=== PATIENT | female | born 1945 | race Caucasian/White ===

== ENCOUNTER 2017-09-12 19:48 | Inpatient (IN) ==
--- NOTE | 2017-09-12 20:15 | Emergency Department Note ---
Disposition Clinical Impression: Small bowel obstruction Renal failure (ARF), acute on chronic Qualifiers: Acute renal failure type: unspecified Chronic kidney disease stage: unspecified stage Qualified Code(s): N17.9 - Acute kidney failure, unspecified; N18.9 - Chronic kidney disease, unspecified; N18.9 - Chronic kidney disease, unspecified Disposition: Admitted As Inpatient Condition: Fair Forms: Work/School Release, ED Satisfaction Letter Time of Disposition: 20:39 Abdominal Pain HPI - General Chief Complaint: ED Nausea/Vomiting/Diarrhea Stated Complaint: small bowel obstruction Time Seen by Provider: 09/12/17 20:01 Source: patient, EMS Nursing Notes Reviewed: Yes Vital Signs Reviewed: Yes - History of Present Illness HPI Narrative: Patient with a history of breast cancer and uterine cancer with recurrences and she has a history of multiple abdominal surgeries and presents from the [facility] where a CAT scan shows a high-grade small bowel obstruction. The patient states her pain started this morning at 8:00 and was lower abdominal pain and sharp and intermittent and at this point the pain has resolved. She did have associated vomiting earlier but no diarrhea. No fever, blood in the urine, blood in the stool. Does not have a history of bowel obstruction that she is aware of. Social history: No smoking or alcohol. Is here with a friend Pain Scale: 0 - Related Data Home Medications Medication Instructions Recorded Confirmed Calcium Carbonate [Calcium] 500 mg PO BID 08/07/17 09/05/17 Cholecalciferol (Vitamin D3) 1,000 unit PO DAILY 08/07/17 09/05/17 [Vitamin D] Krill/Om-3/Dha/Epa/Phospho/Ast 1 each PO DAILY 08/07/17 09/05/17 [Krill Oil 1,000 mg Softgel] Levothyroxine [Synthroid] 125 mcg PO DAILY 08/07/17 09/05/17 Previous Rx's Medication Instructions Recorded Raloxifene [Evista] 60 mg PO DAILY #90 tablet 08/07/17 Allergies Allergy/AdvReac Type Severity Reaction Status Date / Time No Known Allergies Allergy Verified 09/05/17 13:00 Review of Systems: Constitutional: No fever Vision: No blurred vision ENT: No rhinorrhea Respiratory: No cough Allergic: No allergies : No blood in urine GI: No blood in stool Hematologic: No bruising Dermatologic: No skin rash Musculoskeletal: No pain in the extremities Neuro: No numbness of the extremities Abdominal Pain PMH - Past Medical History Medical history: Reports: cancer, diabetes, osteoporosis, thyroid disease Female Surgical History: Reports: cancer surgery Psychiatric history: Reports: no psych history - Social History Smoking status: Never smoker Alcohol use: Reports: none Drug use: Reports: none Physical Exam CONSTITUTIONAL: Alert and oriented X3, well-nourished, well appearing, in no apparent distress HEAD: Normocephalic; atraumatic. EYES: PERRL, no scleral icterus. NOSE: The nose is normal in appearance without rhinorrhea RESP: Normal chest excursion with respiration; breath sounds clear and equal bilaterally; no wheezes, rhonchi, or rales CARD: Regular rhythm, without murmurs, rub or gallop ABD: Non-distended; well-healed surgical scars, ureterostomy with yellow urine, mild discomfort with palpation mid and lower abdomen and no abdominal discomfort upper abdomen. The entire abdomen is soft,without rigidity, rebound or guarding SKIN: Normal for age and race; warm and dry; no apparent lesions - General Limitations: no limitations General appearance: alert, in no apparent distress Course Vital Signs Temperature 98.4 F 09/12/17 19:52 Pulse Rate 80 09/12/17 19:52 Respiratory Rate 18 09/12/17 19:52 Blood Pressure 107/88 09/12/17 19:52 O2 Sat by Pulse Oximetry 98 09/12/17 19:52 Temperature 98.4 F 09/12/17 19:52 Pulse Rate 80 09/12/17 19:52 Respiratory Rate 18 09/12/17 19:52 Blood Pressure 107/88 09/12/17 19:52 O2 Sat by Pulse Oximetry 98 09/12/17 19:52 Oxygen Delivery Oxygen Delivery Room Air Abdominal Pain - MDM Narrative Medical decision making narrative: I did review the labs from the [facility] and these will not be repeated as well as the CT from the [facility]. She is not vomiting has no subjective pain so a NG tube will not be placed at this time. I did speak with the hospitalist accepts the patient for admission. I did speak with Dr. Sebastian from surgery who accepts the patient in consultation and I will consult Dr. Ferris. The patient will be admitted. [id number]
--- NOTE | 2017-09-12 22:02 | Internal Med History&Physical ---
Date of Encounter: 09/12/17 Time of Encounter: 21:58 Assessment and Plan (1) Small bowel obstruction Current visit: Yes Status: Acute patient has multiple abdominal surgery, small bowel obstruction, Dr. willingham was contacted by ED physician we will consult surgery. Nothing by mouth, IV fluids (2) History of breast cancer Current visit: No Status: Acute Status post surgery, continue tamoxifen (3) History of uterine cancer Current visit: No Status: Acute State of surgery and the bladder removed right kidney resection stated post urostomy (4) Renal failure (ARF), acute on chronic Current visit: Yes Status: Acute Dehydration from diarrhea nausea vomiting continue IV fluids Qualifiers: Acute renal failure type: unspecified Chronic kidney disease stage: stage 2 (mild) Qualified Code(s): N17.9 - Acute kidney failure, unspecified; N18.2 - Chronic kidney disease, stage 2 (mild); N18.2 - Chronic kidney disease, stage 2 (mild) Internal Medicine - H&P: HPI Chief complaint: abdominal pain Admitted From: Home Plans for Post Hospital Care: Home History of present illness: Ms. Bacon is a 71 year old female who has history of breast cancer uterus cancer status post hysterectomy and right-sided kidney removal, hypothyroidism present to the emergency room for acute onset abdominal pain. Patient stated she was alright last night, this morning she woke up after breakfast developed abdominal pain, pain is diffuse, cramping 8 out of 10 constant and lasted for few hours then developed nausea vomiting with bile emesis. She called her friends sent her [place] [facility] abdominal shows high great small bowel obstruction. Patient is feeling better now, nausea vomiting resolved abdominal is soft, pain level down to 4 out of 10. She had a bowel movement this morning. Patient is going to be admitted for small bowel obstruction surgery was contacted by ED physician Past Med Surg Social Fam HX - Past Medical History Medical history: cancer, diabetes, osteoporosis, thyroid disease Psychiatric history: no psych history - Past Surgical History Surgical History: breast surgery, ANNETTE/BSO - Social History Smoking Status: Never smoker Smokeless Tobacco Status: No Alcohol use: none Drug use: none Internal Medicine - H&P: Meds Cholecalciferol (Vitamin D3) [Vitamin D] 2,000 unit PO DAILY 08/07/17 [History] Krill/Om-3/Dha/Epa/Phospho/Ast [Krill Oil 1,000 mg Softgel] 1 each PO DAILY 01/15 [History] Levothyroxine [Synthroid] 125 mcg PO QAM 08/07/17 [History] Acetaminophen [Tylenol] 650 mg PO HS 09/12/17 [History] Aspirin Enteric Coated [Aspirin EC] 81 mg PO DAILY 09/12/17 [History] Calcium Carbonate/Vitamin D3 [Calcium 600-Vit D3 400 Tablet] 1 each PO BID 09/12 [History] Melatonin [Melatin] 9 mg PO HS 09/12/17 [History] Multivitamin [One Daily Multivitamin] 1 each PO DAILY 09/12/17 [History] Sodium Bicarbonate 650 mg PO DAILY 09/12/17 [History] Tamoxifen Citrate 20 mg PO DAILY 09/12/17 [History] Valerian Root 250 mg PO HS PRN 09/12/17 [History] 3 Allergy/AdvReac Type Severity Reaction Status Date / Time No Known Allergies Allergy Verified 09/05/17 13:00 All Systems PM: ALL-system review of systems was performed and is negative for pertinent findings except as documented above in the HPI. - Constitutional Vitals: Temp Pulse Resp BP Pulse Ox 98.4 F 85 18 118/62 94 09/12/17 19:52 09/12/17 21:16 09/12/17 21:16 09/12/17 21:16 09/12/17 21:16 General appearance: Present: A&O X 3, obese Exam: CONSTITUTIONAL: Patient appears as an age appropriate female well developed, in no acute distress. EYES Clear sclerae, bilateral pupils are equal, reactive to light and accommodation. Extraocular movements are intact RESPIRATORY: No accessory muscle use, bilateral clear to auscultation, no wheezing, no crackles/rales. CARDIOVASCULAR: Regular heart rate, normal S1 and S2, no murmurs GASTROINTESTINAL: bowel sounds present, soft, no tenderness. No hepatosplenomegaly. No bilateral CVA tenderness MUSCULOSKELETAL: Joints in normal range of motion, no clubbing, no edema, no cyanosis. Bilateral peripheral pulses 2+ LYMPHATIC no lymphadenopathy in neck, groin and axilla bilaterally, no thyromegaly. NEUROLOGIC: CN II to XII are grossly intact, no focal neurological deficit. Deep tendon reflexes 2+ bilaterally. Normal light touch sensation to upper and lower extremity PSYCHIATRIC: Oriented x3, with good insight, mood is euthymic. No hallucinations or delusions. SKIN: Skin warm and dry, no rashes, no open wound.
[2017-09-12] MEDS ORDERED: Naloxone 0.4 MG/ML INJ IVP PRN (22:08)
[2017-09-12] MEDS ORDERED: Ondansetron 4 MG/2 ML VIAL IVP PRN (22:11)
--- NOTE | 2017-09-12 23:05 | General Surgery Consult Note ---
Date of Encounter: 09/12/17 Time of Encounter: 22:54 Assessment and Plan (1) Small bowel obstruction Current Visit: Yes Status: Acute 71F with sbo likely due to adhesions; still unresolved at present; non peritoneal; unable to load films at present; NPO IVF NG tube if she vomits again; daily labs: replete lytes judicious use of narcotics strict I/Os, vitals checks consider UGI with SBFT if SBO is prolonged OR if patient gets an NG tube; will cont to follow History of Present Illness Consult date: 09/12/17 Reason for consult: abdominal pain History of present illness: 71F with complex medical history including stage III L sided breast CA s/p bilateral mastectomy (R was prophylactic) and adjuvant therapy (chemo and radiation), 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 The patient had a bowel movement this morning, but states that she has not been able to have a bowel movement nor pass flatus since this morning. She was evaluated at the [facility] where a CT scan was obtained demonstrating small bowel obstruction that was described as high grade. She was subsequently transferred here for further evaluation. At present she is still not having bowel function, but reports no abdominal distension nor pain. No fevers, chills, nausea or vomiting, but she is burping a lot. Past Med Surg Social Fam HX - Past Medical History Medical history: cancer, diabetes, osteoporosis, thyroid disease Psychiatric history: no psych history - Past Surgical History Surgical History: breast surgery, ANNETTE/BSO - Social History Smoking Status: Never smoker Smokeless Tobacco Status: No Alcohol use: none Drug use: none - Family History Father Living Status: Age at : 75 Cause of : Cancer Hx Family Cancer: Yes (Bladder) Mother Living Status: Age at : 36 Cause of : Cancer Hx Family Cancer: Yes (Breast) Medications and Allergies Cholecalciferol (Vitamin D3) [Vitamin D] 2,000 unit PO DAILY 08/07/17 [History] Krill/Om-3/Dha/Epa/Phospho/Ast [Krill Oil 1,000 mg Softgel] 1 each PO DAILY 01/15 [History] Levothyroxine [Synthroid] 125 mcg PO QAM 08/07/17 [History] Acetaminophen [Tylenol] 650 mg PO HS 09/12/17 [History] Aspirin Enteric Coated [Aspirin EC] 81 mg PO DAILY 09/12/17 [History] Calcium Carbonate/Vitamin D3 [Calcium 600-Vit D3 400 Tablet] 1 each PO BID 09/12 [History] Melatonin [Melatin] 9 mg PO HS 09/12/17 [History] Multivitamin [One Daily Multivitamin] 1 each PO DAILY 09/12/17 [History] Sodium Bicarbonate 650 mg PO DAILY 09/12/17 [History] Tamoxifen Citrate 20 mg PO DAILY 09/12/17 [History] Valerian Root 250 mg PO HS PRN 09/12/17 [History] 3 Allergy/AdvReac Type Severity Reaction Status Date / Time No Known Allergies Allergy Verified 09/05/17 13:00 Review of Systems All systems PM: The remainder of the systems were reviewed and are negative General Surgery Exam Initial Vital Signs Temp Pulse Resp BP Pulse Ox 98.4 F 80 18 107/88 98 09/12/17 19:52 09/12/17 19:52 09/12/17 19:52 09/12/17 19:52 09/12/17 19:52 - General physical appearance well developed, well nourished, no distress - Eyes normal ocular movement - ENT normocephalic - Neck trachea midline, no lymphadectomy - Respiratory normal expansion, normal respiratory effort - Cardiovascular Cardiovascular exam: Present: RRR - Abdomen Abdomen general surgery: Present: soft, non tender (non distended; urostomy - pink viable functioning), surgical scars - Integumentary Integumentary general surgery: Present: warm and dry - Neurologic Present: CN 2-12 grossly intact - Psychiatric Psychiatric general surgery: Present: A&Ox3 Exam Initial Vital Signs Temp Pulse Resp BP Pulse Ox 98.4 F 80 18 107/88 98 09/12/17 19:52 09/12/17 19:52 09/12/17 19:52 09/12/17 19:52 09/12/17 19:52 Results - Labs All other labs normal. Consult Discharge Plan - Plan [facility]errals: [facility] [Primary Care Provider] -
[2017-09-13] MEDS: D5% in 0.45% NACL 1,000 ML IVC SCH ×2 (01:14→16:13)
[2017-09-13] MEDS: *HR* Heparin 5,000 UNIT/ML VIAL SQ SCH ×4 (01:14→23:33)
[2017-09-13 06:22] LABS: Calcium 8.4 mg/dL (8.6-10.3); Magnesium 2.1 mg/dL (1.6-2.6); Phosphorous 5.5 mg/dL (2.7-4.5); Potassium 4.8 mEq/L (3.5-5.1)
[2017-09-13 06:24] LABS: Basophils % 0.5 %; Eosinophils # 0.1 K/mcL (0.0-0.6); Eosinophils % 1.5 %; Hematocrit 29.6 % (35.3-44.9); Hemoglobin 9.5 g/dL (11.5-15.4); Immature Granulocytes % 0.2 % (0-4); Lymphocytes # 2.6 K/mcL (0.6-4.6); Lymphocytes % 38.9 %; Mean Corpuscular HGB Conc 32.1 g/dL (31.6-35.5); Mean Corpuscular Volume 90.2 fL (83.0-100.0); Mean Platelet Volume 10.1 fL (9.4-12.4); Monocytes # 0.6 K/mcL (0.0-1.3); Monocytes % 9.2 %; Neutrophils # 3.3 K/mcL (1.6-8.9); Platelet Count 176 K/mcL (140-400); Red Blood Count 3.28 M/mcL (3.82-4.97); Red Cell Distribution Width 12.6 % (11.5-14.5); Segmented Neutrophils % 49.7 %
[2017-09-13] MEDS: Aspirin Enteric Coated 81 MG Tablet PO SCH (09:15)
[2017-09-13] MEDS: Cholecalciferol (D-3) 1,000 UNIT TABLET PO SCH (09:16)
--- NOTE | 2017-09-13 11:23 | General Surgery Progress Note ---
<Harding,Nenita Emilee - Last Filed: 09/13/17 11:21> Date of Encounter: 09/13/17 Time of Encounter: 11:20 - Assessment and Plan (1) Small bowel obstruction Current Visit: Yes Status: Acute Continue bowel rest Npo except ice chips and medications UGI with SBFT today- gastrograffin Supportive care Strict I&Os Serial abdominal exams Will continue to follow and assess progress Subjective Patient reports: no new complaints, feels better, flatus, no bowel movement, afebrile, other (complaint of belching) Objective Vital Signs - Last 8 Hours Temp Pulse Resp BP Pulse Ox 09/13/17 07:47 98.4 F 57 18 92/53 99 09/13/17 04:17 97.7 F 70 15 96/53 96 Intake and Output 09/12/17 09/13/17 09/13/17 23:59 07:59 15:59 Intake Total 0 / 0 Output Total 0 / 0 Balance 0 / 0 Intake: Oral 0 / 0 Output: Urine 0 / 0 Urostomy 0 / 0 Other: Weight 77.56 kg Blood Glucose* 123 Patient Weight 09/13/17 23:59 Weight 77.56 kg - General physical appearance well developed, well nourished, no distress, no pain - Eyes normal ocular movement - ENT normal mucosa, atraumatic, normocephalic - Neck Neck exam: trachea midline - Respiratory normal expansion, normal respiratory effort, clear to auscultation - Cardiovascular Cardiovascular exam: Present: RRR - Abdomen Abdomen: Present: bowel sounds present, soft, non tender - Neurologic CN 2-12 grossly intact - Musculoskeletal normal gait, normal posture - Psychiatric oriented to time, oriented to person, oriented to place, speech is normal, memory intact - Labs 09/13/17 05:08 09/13/17 05:08 Diabetes panel 09/13/17 Range/Units 05:08 Sodium 142 (136-145) mEq/L Potassium 4.8 (3.5-5.1) mEq/L Chloride 108 H (98-107) mEq/L Carbon Dioxide 25 (23-29) mEq/L BUN 46 H (8-23) mg/dL Creatinine 2.09 H (0.60-1.20) mg/dL Glucose 128 H (70-105) mg/dL Calcium 8.4 L (8.6-10.3) mg/dL Calcium panel 09/13/17 Range/Units 05:08 Calcium 8.4 L (8.6-10.3) mg/dL Phosphorus 5.5 H (2.7-4.5) mg/dL Pituitary panel 09/13/17 Range/Units 05:08 Sodium 142 (136-145) mEq/L Potassium 4.8 (3.5-5.1) mEq/L Chloride 108 H (98-107) mEq/L Carbon Dioxide 25 (23-29) mEq/L BUN 46 H (8-23) mg/dL Creatinine 2.09 H (0.60-1.20) mg/dL Glucose 128 H (70-105) mg/dL Calcium 8.4 L (8.6-10.3) mg/dL Adrenal panel 09/13/17 Range/Units 05:08 Sodium 142 (136-145) mEq/L Potassium 4.8 (3.5-5.1) mEq/L Chloride 108 H (98-107) mEq/L Carbon Dioxide 25 (23-29) mEq/L BUN 46 H (8-23) mg/dL Creatinine 2.09 H (0.60-1.20) mg/dL Glucose 128 H (70-105) mg/dL Calcium 8.4 L (8.6-10.3) mg/dL Consult Discharge Plan - Plan Referrals: [facility] [Primary Care Provider] - - Attending Attestation For this encounter, I have reviewed the WAITSTAFF or PA documentation, treatment plan, and medical decision making; and I have had face to face time with this patient. <Conrado Ferris - Last Filed: 09/13/17 20:49> Date of Encounter: 09/13/17 - Assessment and Plan (1) Small bowel obstruction Current Visit: Yes Status: Acute Objective Vital Signs - Last 8 Hours Temp Pulse Resp BP Pulse Ox 09/13/17 18:25 98.3 F 63 15 102/63 97 09/13/17 14:42 97.7 F 76 18 116/60 99 Intake and Output 09/13/17 09/13/17 09/13/17 07:59 15:59 23:59 Intake Total 0 / 0 1000 / 1000 0 / 0 Output Total 0 / 0 0 / 0 0 / 0 Balance 0 / 0 1000 / 1000 0 / 0 Intake: IV Fluids 1000 / 1000 D5% And 0.45% Nacl 1000 Ml Bag 1000 / 1000 1,000 ML @ 100 mls/hr IVC .Q10H [facility] Rx#:[id number] Oral 0 / 0 0 / 0 0 / 0 Output: Urine 0 / 0 0 / 0 0 / 0 Urostomy 0 / 0 Other: Meal npo Weight 77.56 kg Blood Glucose* 123 122 Patient Weight 09/13/17 23:59 Weight 77.56 kg - Labs 09/13/17 05:08 09/13/17 05:08 Diabetes panel 09/13/17 Range/Units 05:08 Sodium 142 (136-145) mEq/L Potassium 4.8 (3.5-5.1) mEq/L Chloride 108 H (98-107) mEq/L Carbon Dioxide 25 (23-29) mEq/L BUN 46 H (8-23) mg/dL Creatinine 2.09 H (0.60-1.20) mg/dL Glucose 128 H (70-105) mg/dL Calcium 8.4 L (8.6-10.3) mg/dL Calcium panel 09/13/17 Range/Units 05:08 Calcium 8.4 L (8.6-10.3) mg/dL Phosphorus 5.5 H (2.7-4.5) mg/dL Pituitary panel 09/13/17 Range/Units 05:08 Sodium 142 (136-145) mEq/L Potassium 4.8 (3.5-5.1) mEq/L Chloride 108 H (98-107) mEq/L Carbon Dioxide 25 (23-29) mEq/L BUN 46 H (8-23) mg/dL Creatinine 2.09 H (0.60-1.20) mg/dL Glucose 128 H (70-105) mg/dL Calcium 8.4 L (8.6-10.3) mg/dL Adrenal panel 09/13/17 Range/Units 05:08 Sodium 142 (136-145) mEq/L Potassium 4.8 (3.5-5.1) mEq/L Chloride 108 H (98-107) mEq/L Carbon Dioxide 25 (23-29) mEq/L BUN 46 H (8-23) mg/dL Creatinine 2.09 H (0.60-1.20) mg/dL Glucose 128 H (70-105) mg/dL Calcium 8.4 L (8.6-10.3) mg/dL - Attending Attestation I have personally seen and examined the patient. I have reviewed pertinent labs , imaging, progress notes, including this one. I agree with the above assessment and plan and wish to include the following... 71F admitted with concern for sbo; UGI proved no SBO; abdom is soft, non tender , non distended; no acute surgery; general surgery will sign off. please call with questions or new concerns.
[2017-09-13] MEDS ORDERED: *HR* Dextrose 50 % in Water (Syg) 50 ML SYRINGE IVP PRN (14:30)
[2017-09-13] MEDS ORDERED: Dextrose Gel 15 GM/37.5 ML TUBE PO PRN ×2 (14:30)
[2017-09-13] MEDS ORDERED: D5% in Water 1,000 ML IVC PRN (14:30)
--- NOTE | 2017-09-13 17:05 | Internal Med Progress Note ---
Date of Encounter: 09/13/17 Time of Encounter: 11:00 - Assessment and plan (1) Abdominal pain Current Visit: Yes Status: Acute Assessment and plan: -Gen. surgery following with recommendations for small bowel follow-through which showed no evidence of high-grade small bowel obstruction -Patient currently bowel rest except ice chips and medications -Appreciate any further recommendations Qualifiers: Abdominal location: generalized Qualified Code(s): R10.84 - Generalized abdominal pain (2) Renal failure (ARF), acute on chronic Current Visit: Yes Status: Acute Assessment and plan: Creatinine 2.09 today; baseline unclear We will continue to monitor Qualifiers: Acute renal failure type: unspecified Chronic kidney disease stage: stage 2 (mild) Qualified Code(s): N17.9 - Acute kidney failure, unspecified; N18.2 - Chronic kidney disease, stage 2 (mild); N18.2 - Chronic kidney disease, stage 2 (mild) (3) History of bladder cancer Current Visit: No Status: Acute Assessment and plan: Status post surgery, continue tamoxifen (4) History of breast cancer Current Visit: No Status: Acute Assessment and plan: Status post surgery, continue tamoxifen (5) History of uterine cancer Current Visit: No Status: Acute Assessment and plan: State of surgery and the bladder removed right kidney resection stated post urostomy (6) DVT prophylaxis Current Visit: Yes Status: Acute Assessment and plan: Subcutaneous heparin - Subjective Interval history: Patient with abdominal pain with concerns for small bowel obstruction Upper GI and small bowel follow-through ordered per surgery - Constitutional Vitals: Temp Pulse Resp BP Pulse Ox 97.7 F 76 18 116/60 99 09/13/17 14:42 09/13/17 14:42 09/13/17 14:42 09/13/17 14:42 09/13/17 14:42 General appearance: Present: A&O X 3, obese - Respiratory Respiratory exam: Present: CTAB. Absent: accessory muscle use, rales, rhonchi, wheezes - Cardiovascular Cardiovascular exam: Present: RRR, +S1, +S2. Absent: diastolic murmur, gallop, rubs, systolic murmur - GI/Abdominal GI/Abdominal exam: Present: normal bowel sounds, soft, no peritoneal signs. Absent: distended, tenderness Internal Medicine: Result - Labs CBC & Chem 7: 09/13/17 05:08 09/13/17 05:08 Labs: Short CBC 09/13/17 Range/Units 05:08 WBC 6.6 (4.3-11.1) K/mcL Hgb 9.5 L (11.5-15.4) g/dL Hct 29.6 L (35.3-44.9) % Plt Count 176 (140-400) K/mcL Neutrophils # 3.3 (1.6-8.9) K/mcL BMP 09/13/17 05:08 Sodium 142 Potassium 4.8 Chloride 108 H Carbon Dioxide 25 BUN 46 H Creatinine 2.09 H Glucose 128 H Calcium 8.4 L - Impressions Impressions Upper GI and Small Bowel X-Ray 09/13/17 11:19 IMPRESSION: 1. No evidence of high-grade small bowel obstruction. 2. Small hiatal hernia. 3. Small midesophageal diverticulum. 4. Mild esophageal dysmotility. D/ / Rene Davis MD / Rene Davis MD Interpreting Provider: Rene Davis MD Consult Discharge Plan - Plan [facility]errals: [facility] [Primary Care Provider] -
[2017-09-13] MEDS: Insulin LISPRO 300 UNITS/3 ML VIAL SQ SCH ×2 (18:28→21:21)
[2017-09-13] MEDS: Acetaminophen 325 MG TABLET PO SCH (21:16)
[2017-09-13] MEDS: Melatonin 3 MG TABLET PO SCH (21:21)
[2017-09-14] MEDS: Insulin LISPRO 300 UNITS/3 ML VIAL SQ SCH ×4 (09:32→22:11)
[2017-09-14] MEDS: Aspirin Enteric Coated 81 MG Tablet PO SCH (09:32)
[2017-09-14] MEDS: Cholecalciferol (D-3) 1,000 UNIT TABLET PO SCH (09:32)
[2017-09-14 11:10] LABS: Basophils % 0.7 %; Eosinophils # 0.2 K/mcL (0.0-0.6); Eosinophils % 2.8 %; Hematocrit 33.8 % (35.3-44.9); Hemoglobin 10.6 g/dL (11.5-15.4); Immature Granulocytes % 0.3 % (0-4); Lymphocytes # 2.1 K/mcL (0.6-4.6); Lymphocytes % 34.7 %; Mean Corpuscular HGB Conc 31.4 g/dL (31.6-35.5); Mean Corpuscular Hemoglobin 28.4 pg (28.0-33.3); Mean Corpuscular Volume 90.6 fL (83.0-100.0); Mean Platelet Volume 9.9 fL (9.4-12.4); Monocytes # 0.3 K/mcL (0.0-1.3); Monocytes % 5.6 %; Neutrophils # 3.4 K/mcL (1.6-8.9); Platelet Count 185 K/mcL (140-400); Red Blood Count 3.73 M/mcL (3.82-4.97); Red Cell Distribution Width 12.5 % (11.5-14.5); Segmented Neutrophils % 55.9 %
[2017-09-14 11:33] LABS: Calcium 9.3 mg/dL (8.6-10.3); Potassium 4.6 mEq/L (3.5-5.1)
--- NOTE | 2017-09-14 16:50 | Internal Med Progress Note ---
Date of Encounter: 09/14/17 Time of Encounter: 11:00 - Assessment and plan (1) Abdominal pain Current Visit: Yes Status: Acute Assessment and plan: -Patient reports abdominal pain has resolved this morning -Small bowel follow-through showed no evidence of high-grade small bowel obstruction -Will start patient on clears and advance diet as tolerates Qualifiers: Abdominal location: generalized Qualified Code(s): R10.84 - Generalized abdominal pain (2) Renal failure (ARF), acute on chronic Current Visit: Yes Status: Acute Assessment and plan: Creatinine 2.08 today; baseline unclear We will continue to monitor Qualifiers: Acute renal failure type: unspecified Chronic kidney disease stage: stage 2 (mild) Qualified Code(s): N17.9 - Acute kidney failure, unspecified; N18.2 - Chronic kidney disease, stage 2 (mild); N18.2 - Chronic kidney disease, stage 2 (mild) (3) History of bladder cancer Current Visit: No Status: Acute Assessment and plan: Status post surgery, continue tamoxifen (4) History of breast cancer Current Visit: No Status: Acute Assessment and plan: Status post surgery, continue tamoxifen (5) History of uterine cancer Current Visit: No Status: Acute Assessment and plan: State of surgery and the bladder removed right kidney resection stated post urostomy (6) DVT prophylaxis Current Visit: Yes Status: Acute Assessment and plan: Subcutaneous heparin - Subjective Interval history: Patient reports abdominal pain has resolved this morning; she is currently nothing by mouth - Constitutional Vitals: Temp Pulse Resp BP Pulse Ox 98.4 F 70 14 123/73 95 09/14/17 09:13 09/14/17 09:13 09/14/17 09:13 09/14/17 09:13 09/14/17 09:13 General appearance: Present: A&O X 3, no acute distress, obese - Cardiovascular Cardiovascular exam: Present: RRR, +S1, +S2. Absent: diastolic murmur, gallop, rubs, systolic murmur - GI/Abdominal GI/Abdominal exam: Present: normal bowel sounds, soft, no peritoneal signs. Absent: distended, tenderness Internal Medicine: Result - Labs CBC & Chem 7: 09/14/17 10:46 09/14/17 10:46 Labs: Short CBC 09/14/17 Range/Units 10:46 WBC 6.1 (4.3-11.1) K/mcL Hgb 10.6 L (11.5-15.4) g/dL Hct 33.8 L (35.3-44.9) % Plt Count 185 (140-400) K/mcL Neutrophils # 3.4 (1.6-8.9) K/mcL [facility] 09/14/17 10:46 Sodium 139 Potassium 4.6 Chloride 107 Carbon Dioxide 23 BUN 43 H Creatinine 2.08 H Glucose 78 Calcium 9.3 Consult Discharge Plan - Plan [facility]errals: [facility] [Primary Care Provider] -
[2017-09-14] MEDS: Melatonin 3 MG TABLET PO SCH (22:11)
[2017-09-14] MEDS: Acetaminophen 325 MG TABLET PO SCH (22:12)
[2017-09-15] MEDS ORDERED: *HR* Enoxaparin 40 MG/0.4 ML SYRINGE SQ SCH (06:00)
[2017-09-15] MEDS ORDERED: *HR* Enoxaparin 30 MG/0.3 ML SYRINGE SQ SCH (06:00)
[2017-09-15 07:03] VITALS: BP 90/56
[2017-09-15 07:32] LABS: Calcium 9.1 mg/dL (8.6-10.3); Potassium 4.5 mEq/L (3.5-5.1)
[2017-09-15 07:41] LABS: Basophils % 0.5 %; Eosinophils # 0.2 K/mcL (0.0-0.6); Eosinophils % 3.4 %; Hematocrit 31.2 % (35.3-44.9); Hemoglobin 10.1 g/dL (11.5-15.4); Immature Granulocytes % 0.2 % (0-4); Lymphocytes # 2.1 K/mcL (0.6-4.6); Lymphocytes % 37.4 %; Mean Corpuscular HGB Conc 32.4 g/dL (31.6-35.5); Mean Corpuscular Hemoglobin 28.6 pg (28.0-33.3); Mean Corpuscular Volume 88.4 fL (83.0-100.0); Mean Platelet Volume 9.8 fL (9.4-12.4); Monocytes # 0.4 K/mcL (0.0-1.3); Monocytes % 6.4 %; Neutrophils # 2.9 K/mcL (1.6-8.9); Platelet Count 185 K/mcL (140-400); Red Blood Count 3.53 M/mcL (3.82-4.97); Red Cell Distribution Width 12.2 % (11.5-14.5); Segmented Neutrophils % 52.1 %
[2017-09-15] MEDS: Insulin LISPRO 300 UNITS/3 ML VIAL SQ SCH (08:10)
[2017-09-15] MEDS: Aspirin Enteric Coated 81 MG Tablet PO SCH (08:11)
[2017-09-15] MEDS: Cholecalciferol (D-3) 1,000 UNIT TABLET PO SCH (08:11)
--- NOTE | 2017-09-15 10:19 | Discharge Summary ---
- NOTES TO OUTPATIENT PROVIDER Notes to Outpatient Provider: none Date of Encounter: 09/15/17 Time of Encounter: 09:30 - Discharge Diagnosis (1) Abdominal pain Priority: Primary Status: Acute Qualifiers: Abdominal location: generalized Qualified Code(s): R10.84 - Generalized abdominal pain (2) Renal failure (ARF), acute on chronic Priority: Secondary Status: Acute Qualifiers: Acute renal failure type: unspecified Chronic kidney disease stage: stage 2 (mild) Qualified Code(s): N17.9 - Acute kidney failure, unspecified; N18.2 - Chronic kidney disease, stage 2 (mild); N18.2 - Chronic kidney disease, stage 2 (mild) (3) History of bladder cancer Priority: Secondary Status: Acute (4) History of breast cancer Priority: Secondary Status: Acute (5) History of uterine cancer Priority: Secondary Status: Acute Hospital course: Patient is a 71-year-old female with past medical history significant for breast cancer uterus cancer status post hysterectomy and right-sided kidney removal and hypothyroidism who present to the emergency room for acute onset abdominal pain. She reported of waking up the morning of admission with diffuse abdominal pain she characterized as cramping for severity of 8 out of 10 lasting for hours. Patient reports of associated symptoms of nausea and vomiting. Patient decided to go to the [facility] for evaluation and CT of the abdomen showed small bowel obstruction. Patient was sent to [facility] ER and admitted to the medical surgical floor for further evaluation. During patients hospital stay, Gen. Surgery was consult with recommendations for small bowel follow-through that was ordered and showed no evidence of high- grade small bowel obstruction. Patients diet was increased as tolerated without any issues. Patient remained asymptomatic denying any abdominal pain. She will be discharged to follow-up with primary care provider. - Time Spent with Patient Total time spent providing and/or coordinating discharge services: Less than 30 minutes - Discharge Medications Home Medications: Cholecalciferol (Vitamin D3) [Vitamin D3] 2,000 unit PO DAILY 08/07/17 [History] Krill/Om-3/Dha/Epa/Phospho/Ast [Krill Oil 1,000 mg Softgel] 1 each PO DAILY 01/15 [History] Levothyroxine [Synthroid] 125 mcg PO QAM 08/07/17 [History] Acetaminophen [Tylenol] 650 mg PO HS 09/12/17 [History] Aspirin Enteric Coated [Aspirin EC] 81 mg PO DAILY 09/12/17 [History] Calcium Carbonate/Vitamin D3 [Calcium 600-Vit D3 400 Tablet] 1 each PO BID 09/12 [History] Melatonin [Melatin] 9 mg PO HS 09/12/17 [History] Multivitamin [One Daily Multivitamin] 1 each PO DAILY 09/12/17 [History] Sodium Bicarbonate 650 mg PO DAILY 09/12/17 [History] Tamoxifen Citrate 20 mg PO DAILY 09/12/17 [History] Valerian Root 250 mg PO HS PRN 09/12/17 [History] Allergies/Adverse Reactions: 3 Allergy/AdvReac Type Severity Reaction Status Date / Time No Known Allergies Allergy Verified 09/05/17 13:00 Date of admission: 09/13/17 00:10 Primary care physician: PCP [facility] - Constitutional Vitals: Temp Pulse Resp BP Pulse Ox 98.5 F 72 15 90/56 97 09/15/17 06:50 09/15/17 06:50 09/15/17 06:50 09/15/17 06:50 09/15/17 06:50 General appearance: Present: A&O X 3, no acute distress, obese - Patient Status Disposition: Home, Self-Care Condition: Fair - Discharge Instructions Instructions: Bowel Obstruction (DC) Follow Up With: [facility] [Primary Care Provider] -
== END 2017-09-15 11:48 | disposition home or self-care (01) | DRG 392 ==
LOC: EMEROO 19:48 → 3ANU 19:48
PROVIDERS: ADMIT Hospitalist; ATTEND Hospitalist

== ENCOUNTER 2019-06-14 11:41 | Inpatient (IN) ==
[2019-06-14] MEDS ORDERED: Ringers Solution, Lactated 1,000 ML IVC ONE (11:54)
[2019-06-14] MEDS ORDERED: Ringers Solution, Lactated 500 ML IVC ONE (11:56)
[2019-06-14 12:48] LABS: Calcium 5.4 mg/dL (8.6-10.3); Potassium 6.1 mEq/L (3.5-5.1)
[2019-06-14] MEDS ORDERED: Furosemide 40 MG/4 ML VIAL IVP ONE (13:02)
[2019-06-14] MEDS ORDERED: Insulin Human Regular 10 UNIT in 0.9 % Sodium Chloride 10 ML IV ONE (13:02)
[2019-06-14] MEDS ORDERED: *HR* Dextrose 50 % in Water (Syg) 50 ML SYRINGE IVP ONE (13:03)
[2019-06-14] MEDS ORDERED: Albuterol 2.5 MG/3 ML NEBULIZER IH ONE (13:04)
[2019-06-14] MEDS ORDERED: Calcium Gluconate 1gm/50mL 1 GM/50 ML BAG IVPB ONE ×2 (13:06→17:03)
[2019-06-14] MEDS ORDERED: SODIUM CHLORIDE 0.9% IVPB ONE (13:07)
[2019-06-14] MEDS ORDERED: RASBURICASE IVPB ONE (13:07)
[2019-06-14] MEDS ORDERED: *HR* Dextrose 50 % in Water (Syg) 50 ML SYRINGE ONE (13:22)
[2019-06-14] MEDS ORDERED: Calcium Gluconate 1gm/50mL 1 GM/50 ML BAG IVPB SCH (13:30)
[2019-06-14] MEDS ORDERED: 0.9 % Sodium Chloride 1,000 ML IVC ONE (13:39)
[2019-06-14 13:46] LABS: Basophils % 0.1 %; Eosinophils % 0.1 %; Hematocrit 31.5 % (35.3-44.9); Hemoglobin 10.1 g/dL (11.5-15.4); Immature Granulocytes % 0.4 % (0-4); Lymphocytes # 1.3 K/mcL (0.6-4.6); Lymphocytes % 8.6 %; Mean Corpuscular HGB Conc 32.1 g/dL (31.6-35.5); Mean Corpuscular Hemoglobin 27.5 pg (28.0-33.3); Mean Corpuscular Volume 85.8 fL (83.0-100.0); Mean Platelet Volume 9.6 fL (9.4-12.4); Monocytes # 0.9 K/mcL (0.0-1.3); Monocytes % 6.2 %; Neutrophils # 12.4 K/mcL (1.6-8.9); Platelet Count 283 K/mcL (140-400); Red Blood Count 3.67 M/mcL (3.82-4.97); Segmented Neutrophils % 84.6 %; White Blood Count 14.6 K/mcL (4.3-11.1)
[2019-06-14 13:49] LABS: VBG HCO3 18 mEq/L (21-27); VBG Ionized Calcium 0.69 mmol/L (1.15-1.35); VBG PCO2 45 mmHg (41-51); VBG PH 7.22 pH Units (7.32-7.42); VBG PO2 120 mmHg (25-50)
[2019-06-14 14:04] LABS: Uric Acid 10.4 mg/dL (2.3-7.6)
[2019-06-14] MEDS ORDERED: SODIUM CHLORIDE 0.9% IVPB STA (14:13)
[2019-06-14] MEDS ORDERED: RASBURICASE IVPB STA (14:13)
[2019-06-14] MEDS ORDERED: 0.9 % Sodium Chloride 1,000 ML IVC SCH (15:00)
[2019-06-14 16:11] LABS: Calcium 5.5 mg/dL (8.6-10.3)
[2019-06-14] MEDS: 0.9 % Sodium Chloride 1,000 ML IVC SCH ×2 (17:15→23:07)
[2019-06-14 17:39] LABS: Calcium 5.2 mg/dL (8.6-10.3); Phosphorous 4.7 mg/dL (2.7-4.5); Potassium 5.2 mEq/L (3.5-5.1)
[2019-06-14] MEDS ORDERED: 0.9 % Sodium Chloride 500 ML IV ONE (18:29)
[2019-06-14 19:06] LABS: Calcium 5.6 mg/dL (8.6-10.3); Potassium 5.4 mEq/L (3.5-5.1)
[2019-06-14] MEDS: Melatonin 3 MG TABLET PO SCH (20:25)
[2019-06-14] MEDS: Acetaminophen 325 MG TABLET PO SCH (20:25)
[2019-06-14] MEDS: *HR* Heparin 5,000 UNIT/ML VIAL SQ SCH (20:26)
[2019-06-15 05:49] LABS: Basophils % 0.2 %; Eosinophils % 0.1 %; Hematocrit 29.4 % (35.3-44.9); Hemoglobin 9.4 g/dL (11.5-15.4); Immature Granulocytes % 0.4 % (0-4); Lymphocytes % 9.2 %; Mean Corpuscular Hemoglobin 27.4 pg (28.0-33.3); Mean Corpuscular Volume 85.7 fL (83.0-100.0); Mean Platelet Volume 9.8 fL (9.4-12.4); Monocytes # 0.7 K/mcL (0.0-1.3); Monocytes % 6.3 %; Neutrophils # 8.7 K/mcL (1.6-8.9); Platelet Count 244 K/mcL (140-400); Red Blood Count 3.43 M/mcL (3.82-4.97); Red Cell Distribution Width 15.5 % (11.5-14.5); Segmented Neutrophils % 83.8 %; White Blood Count 10.4 K/mcL (4.3-11.1)
[2019-06-15] MEDS: *HR* Heparin 5,000 UNIT/ML VIAL SQ SCH ×3 (05:57→21:43)
[2019-06-15 06:17] LABS: Potassium 5.6 mEq/L (3.5-5.1)
[2019-06-15] MEDS ORDERED: Calcium Gluconate 1gm/50mL 1 GM/50 ML BAG IVPB ONE (06:28)
[2019-06-15] MEDS: 0.9 % Sodium Chloride 1,000 ML IVC SCH (07:09)
[2019-06-15 08:39] LABS: Hepatitis B Surface Antibody 20.26 mIU/mL
[2019-06-15 08:49] LABS: Hepatitis B Surface Antigen Nonreactive (Nonreactive)
[2019-06-15 09:19] LABS: Hepatitis B Core IgM Nonreactive (Nonreactive)
[2019-06-15] MEDS ORDERED: *HR* Heparin 10,000 UNIT/10 ML VIAL IV PRN (09:43)
[2019-06-15] MEDS ORDERED: 0.9 % Sodium Chloride 250 ML IVC PRN (09:43)
[2019-06-15] MEDS ORDERED: 0.9 % Sodium Chloride 1,000 ML PRIME SCH (09:45)
[2019-06-15] MEDS ORDERED: *HR* Heparin 5,000 UNIT/ML VIAL ONE (10:50)
[2019-06-15 14:39] LABS: Calcium 5.3 mg/dL (8.6-10.3); Potassium 5.2 mEq/L (3.5-5.1)
[2019-06-15] MEDS: Melatonin 3 MG TABLET PO SCH (21:42)
[2019-06-15] MEDS: Acetaminophen 325 MG TABLET PO SCH (21:43)
[2019-06-16 03:19] LABS: Basophils % 0.2 %; Eosinophils # 0.1 K/mcL (0.0-0.6); Eosinophils % 1.2 %; Hematocrit 26.1 % (35.3-44.9); Hemoglobin 8.8 g/dL (11.5-15.4); Immature Granulocytes % 0.2 % (0-4); Lymphocytes # 0.8 K/mcL (0.6-4.6); Lymphocytes % 9.8 %; Mean Corpuscular HGB Conc 33.7 g/dL (31.6-35.5); Mean Corpuscular Volume 83.1 fL (83.0-100.0); Mean Platelet Volume 9.5 fL (9.4-12.4); Monocytes # 0.5 K/mcL (0.0-1.3); Neutrophils # 6.9 K/mcL (1.6-8.9); Platelet Count 222 K/mcL (140-400); Red Blood Count 3.14 M/mcL (3.82-4.97); Red Cell Distribution Width 15.3 % (11.5-14.5); Segmented Neutrophils % 82.6 %; White Blood Count 8.3 K/mcL (4.3-11.1)
[2019-06-16 03:34] LABS: Phosphorous 5.5 mg/dL (2.7-4.5)
[2019-06-16] MEDS: *HR* Heparin 5,000 UNIT/ML VIAL SQ SCH ×3 (05:17→21:39)
[2019-06-16] MEDS ORDERED: 0.9 % Sodium Chloride 250 ML IVC PRN (07:10)
[2019-06-16] MEDS: Acetaminophen 325 MG TABLET PO SCH (21:39)
[2019-06-16] MEDS: Melatonin 3 MG TABLET PO SCH (21:39)
[2019-06-17] MEDS ORDERED: Prochlorperazine 10 MG/2 ML VIAL IVP PRN
[2019-06-17] MEDS ORDERED: ETOPOSIDE IVPB SCH
[2019-06-17] MEDS ORDERED: *HR* LORazepam 2 MG/ML VIAL IVP PRN
[2019-06-17] MEDS ORDERED: CARBOPLATIN IV SCH
[2019-06-17] MEDS ORDERED: Fosaprepitant Dimeglumine 150 MG in 0.9 % Sodium Chloride 250 ML IVPB ONE
[2019-06-17] MEDS ORDERED: Dexamethasone 10 MG/ML VIAL IVP ONE
[2019-06-17] MEDS ORDERED: SODIUM CHLORIDE 0.9% IV SCH
[2019-06-17] MEDS ORDERED: SODIUM CHLORIDE 0.9% IVPB SCH
[2019-06-17] MEDS: *HR* Heparin 5,000 UNIT/ML VIAL SQ SCH ×3 (05:18→21:28)
[2019-06-17 06:09] LABS: Calcium 6.2 mg/dL (8.6-10.3); Potassium 3.7 mEq/L (3.5-5.1)
[2019-06-17 06:21] LABS: Calcium 6.5 mg/dL (8.6-10.3); Potassium 3.4 mEq/L (3.5-5.1)
[2019-06-17 07:09] LABS: Basophils % 0.4 %; Eosinophils # 0.1 K/mcL (0.0-0.6); Eosinophils % 1.4 %; Hematocrit 29.9 % (35.3-44.9); Hemoglobin 9.8 g/dL (11.5-15.4); Immature Granulocytes % 0.4 % (0-4); Lymphocytes # 0.9 K/mcL (0.6-4.6); Lymphocytes % 10.6 %; Mean Corpuscular HGB Conc 32.8 g/dL (31.6-35.5); Mean Corpuscular Hemoglobin 27.5 pg (28.0-33.3); Mean Corpuscular Volume 83.8 fL (83.0-100.0); Mean Platelet Volume 10.2 fL (9.4-12.4); Monocytes # 0.6 K/mcL (0.0-1.3); Monocytes % 7.7 %; Neutrophils # 6.6 K/mcL (1.6-8.9); Platelet Count 280 K/mcL (140-400); Red Blood Count 3.57 M/mcL (3.82-4.97); Red Cell Distribution Width 15.3 % (11.5-14.5); Segmented Neutrophils % 79.5 %; White Blood Count 8.3 K/mcL (4.3-11.1)
[2019-06-17 08:54] LABS: Albumin 2.6 g/dL (3.5-5.7); Albumin/Globulin Ratio 1.1 (1.1-2.2); Bilirubin,Direct 0.2 mg/dL (0.0-0.2); Bilirubin,Indirect 0.2 mg/dL (0.0-1.0); Bilirubin,Total 0.4 mg/dL (0.3-1.0); Globulin 2.3 g/dL (2.4-3.5); Total Protein 4.9 g/dL (6.4-8.9)
[2019-06-17] MEDS: 0.9 % Sodium Chloride 500 ML IVC SCH (11:04)
[2019-06-17 20:03] LABS: Albumin 2.8 g/dL (3.5-5.7); Albumin/Globulin Ratio 1.1 (1.1-2.2); Bilirubin,Total 0.4 mg/dL (0.3-1.0); Calcium 6.1 mg/dL (8.6-10.3); Globulin 2.5 g/dL (2.4-3.5); Potassium 3.6 mEq/L (3.5-5.1); Total Protein 5.3 g/dL (6.4-8.9)
[2019-06-17] MEDS ORDERED: Ondansetron 8 MG in 0.9 % Sodium Chloride 50 ML IVPB PRN (21:00)
[2019-06-17] MEDS: Acetaminophen 325 MG TABLET PO SCH (21:29)
[2019-06-17] MEDS: Melatonin 3 MG TABLET PO SCH (21:29)
[2019-06-18] MEDS ORDERED: Prochlorperazine 10 MG/2 ML VIAL IVP PRN
[2019-06-18] MEDS ORDERED: *HR* LORazepam 2 MG/ML VIAL IVP PRN
[2019-06-18] MEDS ORDERED: 0.9 % Sodium Chloride 250 ML IVC PRN (06:52)
[2019-06-18 08:14] LABS: Hematocrit 27.6 % (35.3-44.9); Hemoglobin 8.5 g/dL (11.5-15.4); Immature Granulocytes % 0.2 % (0-4); Lymphocytes # 0.4 K/mcL (0.6-4.6); Lymphocytes % 7.5 %; Mean Corpuscular HGB Conc 30.8 g/dL (31.6-35.5); Mean Corpuscular Hemoglobin 27.4 pg (28.0-33.3); Mean Platelet Volume 9.8 fL (9.4-12.4); Monocytes # 0.2 K/mcL (0.0-1.3); Monocytes % 3.2 %; Neutrophils # 4.8 K/mcL (1.6-8.9); Platelet Count 214 K/mcL (140-400); Red Cell Distribution Width 15.1 % (11.5-14.5); Segmented Neutrophils % 89.1 %; White Blood Count 5.4 K/mcL (4.3-11.1)
[2019-06-18] MEDS: *HR* Heparin 5,000 UNIT/ML VIAL SQ SCH ×3 (08:17→21:12)
[2019-06-18 08:30] LABS: Albumin 2.7 g/dL (3.5-5.7); Albumin/Globulin Ratio 1.2 (1.1-2.2); Bilirubin,Total 0.3 mg/dL (0.3-1.0); Calcium 5.9 mg/dL (8.6-10.3); Globulin 2.3 g/dL (2.4-3.5); Potassium 3.9 mEq/L (3.5-5.1)
[2019-06-18] MEDS ORDERED: Calcium Gluconate 1gm/50mL 1 GM/50 ML BAG IVPB ONE ×2 (08:33→12:02)
[2019-06-18 08:53] LABS: Phosphorous 5.3 mg/dL (2.7-4.5)
[2019-06-18] MEDS ORDERED: 0.9 % Sodium Chloride 2,000 ML ONE (10:01)
[2019-06-18] MEDS ORDERED: SODIUM CHLORIDE 0.9% IVPB SCH (14:00)
[2019-06-18] MEDS: 0.9 % Sodium Chloride 500 ML IVC SCH ×3 (14:00→21:02)
[2019-06-18] MEDS ORDERED: ETOPOSIDE IVPB SCH (14:00)
[2019-06-18] MEDS: Calcium Gluconate 1gm/50mL 1 GM/50 ML BAG IVPB SCH ×2 (16:58→18:00)
[2019-06-18 18:45] LABS: Albumin 2.9 g/dL (3.5-5.7); Albumin/Globulin Ratio 1.1 (1.1-2.2); Bilirubin,Total 0.4 mg/dL (0.3-1.0); Calcium 7.5 mg/dL (8.6-10.3); Globulin 2.6 g/dL (2.4-3.5); Potassium 3.5 mEq/L (3.5-5.1); Total Protein 5.5 g/dL (6.4-8.9)
[2019-06-18] MEDS: Melatonin 3 MG TABLET PO SCH (21:11)
[2019-06-18] MEDS: Acetaminophen 325 MG TABLET PO SCH (21:11)
[2019-06-19] MEDS ORDERED: *HR* LORazepam 2 MG/ML VIAL IVP PRN
[2019-06-19] MEDS ORDERED: Prochlorperazine 10 MG/2 ML VIAL IVP PRN
[2019-06-19 04:28] LABS: Hematocrit 26.2 % (35.3-44.9); Hemoglobin 8.5 g/dL (11.5-15.4); Immature Granulocytes % 0.4 % (0-4); Lymphocytes # 0.7 K/mcL (0.6-4.6); Lymphocytes % 9.6 %; Mean Corpuscular HGB Conc 32.4 g/dL (31.6-35.5); Mean Corpuscular Hemoglobin 27.7 pg (28.0-33.3); Mean Corpuscular Volume 85.3 fL (83.0-100.0); Mean Platelet Volume 9.9 fL (9.4-12.4); Monocytes # 0.5 K/mcL (0.0-1.3); Monocytes % 5.9 %; Neutrophils # 6.4 K/mcL (1.6-8.9); Platelet Count 230 K/mcL (140-400); Red Blood Count 3.07 M/mcL (3.82-4.97); Red Cell Distribution Width 15.1 % (11.5-14.5); Segmented Neutrophils % 84.1 %; White Blood Count 7.6 K/mcL (4.3-11.1)
[2019-06-19 04:59] LABS: Calcium 7.2 mg/dL (8.6-10.3); Potassium 3.8 mEq/L (3.5-5.1)
[2019-06-19] MEDS: *HR* Heparin 5,000 UNIT/ML VIAL SQ SCH ×3 (06:18→19:59)
[2019-06-19] MEDS ORDERED: 0.9 % Sodium Chloride 250 ML IVC PRN (06:21)
[2019-06-19] MEDS ORDERED: Calcium Gluconate 1gm/50mL 1 GM/50 ML BAG IVPB ONE (07:59)
[2019-06-19] MEDS ORDERED: 0.9 % Sodium Chloride 1,000 ML ONE (08:17)
[2019-06-19] MEDS ORDERED: SODIUM CHLORIDE 0.9% IVPB SCH (13:30)
[2019-06-19] MEDS ORDERED: ETOPOSIDE IVPB SCH (13:30)
[2019-06-19] MEDS: 0.9 % Sodium Chloride 500 ML IVC SCH ×2 (13:48→18:00)
[2019-06-19] MEDS: Acetaminophen 325 MG TABLET PO SCH (19:59)
[2019-06-19] MEDS: Melatonin 3 MG TABLET PO SCH (19:59)
[2019-06-20] MEDS: *HR* Heparin 5,000 UNIT/ML VIAL SQ SCH ×3 (05:43→22:01)
[2019-06-20 09:33] LABS: Eosinophils # 0.1 K/mcL (0.0-0.6); Eosinophils % 1.7 %; Hematocrit 26.8 % (35.3-44.9); Hemoglobin 8.6 g/dL (11.5-15.4); Immature Granulocytes % 0.3 % (0-4); Lymphocytes # 0.9 K/mcL (0.6-4.6); Lymphocytes % 16.4 %; Mean Corpuscular HGB Conc 32.1 g/dL (31.6-35.5); Mean Corpuscular Volume 87.3 fL (83.0-100.0); Mean Platelet Volume 9.8 fL (9.4-12.4); Monocytes # 0.2 K/mcL (0.0-1.3); Monocytes % 3.1 %; Neutrophils # 4.5 K/mcL (1.6-8.9); Platelet Count 204 K/mcL (140-400); Red Blood Count 3.07 M/mcL (3.82-4.97); Red Cell Distribution Width 14.8 % (11.5-14.5); Segmented Neutrophils % 78.5 %; White Blood Count 5.7 K/mcL (4.3-11.1)
[2019-06-20 09:52] LABS: Calcium 7.8 mg/dL (8.6-10.3); Magnesium 1.7 mg/dL (1.6-2.6); Phosphorous 3.8 mg/dL (2.7-4.5); Potassium 3.8 mEq/L (3.5-5.1)
[2019-06-20] MEDS: Melatonin 3 MG TABLET PO SCH (22:01)
[2019-06-20] MEDS: Acetaminophen 325 MG TABLET PO SCH (22:01)
[2019-06-21 04:25] LABS: Basophils # 0.1 K/mcL (0.0-0.2); Basophils % 0.3 %; Eosinophils # 0.2 K/mcL (0.0-0.6); Eosinophils % 0.9 %; Hematocrit 24.3 % (35.3-44.9); Hemoglobin 7.5 g/dL (11.5-15.4); Immature Granulocytes % 1.3 % (0-4); Lymphocytes # 1.2 K/mcL (0.6-4.6); Lymphocytes % 6.3 %; Mean Corpuscular HGB Conc 30.9 g/dL (31.6-35.5); Mean Corpuscular Hemoglobin 27.6 pg (28.0-33.3); Mean Corpuscular Volume 89.3 fL (83.0-100.0); Mean Platelet Volume 9.9 fL (9.4-12.4); Monocytes # 0.2 K/mcL (0.0-1.3); Monocytes % 0.8 %; Neutrophils # 17.5 K/mcL (1.6-8.9); Platelet Count 182 K/mcL (140-400); Red Blood Count 2.72 M/mcL (3.82-4.97); Red Cell Distribution Width 14.9 % (11.5-14.5); Segmented Neutrophils % 90.4 %; White Blood Count 19.3 K/mcL (4.3-11.1)
[2019-06-21 04:40] LABS: Magnesium 1.5 mg/dL (1.6-2.6); Phosphorous 4.6 mg/dL (2.7-4.5); Potassium 3.4 mEq/L (3.5-5.1)
[2019-06-21] MEDS: *HR* Heparin 5,000 UNIT/ML VIAL SQ SCH ×2 (05:28→14:21)
[2019-06-21] MEDS ORDERED: Potassium Chloride Elixir 20 MEQ/15 ML UDC PO SCH (08:00)
[2019-06-21 14:15] VITALS: BP 131/63
== END 2019-06-21 16:57 | disposition home or self-care (01) | DRG 683 ==
LOC: 2ANU 11:41 → EMEROOARM 11:41 → OBSVTOIN 15:11 → 2ANU 15:19 → 3ANU 06-15 15:55
PROVIDERS: ADMIT Internal Medicine; ATTEND Internal Medicine

== ENCOUNTER 2019-10-24 08:43 | Observation (INO) ==
[2019-10-24] MEDS ORDERED: Aspirin 81 MG TAB.CHEW PO ONE (08:45)
[2019-10-24] MEDS ORDERED: *HR* FentaNYL (PF) 100 MCG/2 ML VIAL IVP ONE (09:06)
[2019-10-24] MEDS ORDERED: Isovue-370 500 ML BOTTLE IVP ONE (09:06)
[2019-10-24 09:30] LABS: Hematocrit 26.1 % (35.3-44.9); Hemoglobin 8.2 g/dL (11.5-15.4); Mean Corpuscular HGB Conc 31.4 g/dL (31.6-35.5); Mean Corpuscular Hemoglobin 33.5 pg (28.0-33.3); Mean Corpuscular Volume 106.5 fL (83.0-100.0); Mean Platelet Volume 10.2 fL (9.4-12.4); Platelet Count 112 K/mcL (140-400); Red Blood Count 2.45 M/mcL (3.82-4.97); Red Cell Distribution Width 13.4 % (11.5-14.5); White Blood Count 20.5 K/mcL (4.3-11.1)
[2019-10-24 09:31] LABS: INR 1.1; Prothrombin Time 12.6 Seconds (9.4-12.1)
[2019-10-24 09:34] LABS: Activated Partial Thrombo Time 49.4 Seconds (26.0-36.0)
[2019-10-24 09:49] LABS: Calcium 7.4 mg/dL (8.6-10.3); Magnesium 1.5 mg/dL (1.6-2.6); Potassium 4.2 mEq/L (3.5-5.1); Troponin I 0.03 ng/mL (< 0.04)
[2019-10-24 09:50] LABS: Lymphocytes # 2.1 K/mcL (0.6-4.6)
[2019-10-24 09:51] LABS: Platelet Estimate Slight Decrease (Normal)
[2019-10-24] MEDS ORDERED: 0.9 % Sodium Chloride 1,000 ML IVC ONE ×2 (09:59→10:15)
[2019-10-24] MEDS ORDERED: Azithromycin 500 MG in 0.9 % Sodium Chloride 250 ML IVPB ONE (10:37)
[2019-10-24] MEDS ORDERED: Acetaminophen 325 MG TABLET PO ONE (13:07)
[2019-10-24] MEDS ORDERED: Magnesium Oxide 400 MG TABLET PO STA (13:16)
[2019-10-24] MEDS ORDERED: Naloxone 0.4 MG/ML INJ IVP PRN (16:05)
[2019-10-24] MEDS ORDERED: Nitroglycerin 0.4 MG TAB.SUBL SL PRN (16:07)
[2019-10-24] MEDS: *HR* Heparin 5,000 UNIT/ML VIAL SQ SCH (16:50)
[2019-10-24] MEDS ORDERED: Melatonin 3 MG TABLET PO PRN (17:27)
[2019-10-24 21:17] LABS: Bilirubin,Urine Negative (Negative); Blood,Urine Negative (Negative); Clarity,Urine Cloudy (Clear); Color,Urine Yellow (Yellow); Glucose,Urine (UA) Normal (Normal); Ketones,Urine Negative (Negative); Leukocyte Esterase,Urine Moderate (Negative); Nitrite,Urine Positive (Negative); Protein,Urine 30 mg/dL (Neg-Trace); Specific Gravity,Urine 1.012 (1.010-1.025); Urobilinogen,Urine Normal (Normal)
[2019-10-24 21:39] LABS: Bacteria,Urine Moderate per hpf (None-Few)
[2019-10-24] MEDS: Acetaminophen 325 MG TABLET PO PRN (22:13)
[2019-10-25 04:10] LABS: Hemoglobin 7.3 g/dL (11.5-15.4); Red Cell Distribution Width 13.5 % (11.5-14.5)
[2019-10-25 04:11] LABS: Hematocrit 23.4 % (35.3-44.9); Immature Platelets 4.9 % (1.1-6.1); Mean Corpuscular HGB Conc 31.2 g/dL (31.6-35.5); Mean Corpuscular Hemoglobin 33.8 pg (28.0-33.3); Mean Corpuscular Volume 108.3 fL (83.0-100.0); Mean Platelet Volume 11.2 fL (9.4-12.4); Red Blood Count 2.16 M/mcL (3.82-4.97); White Blood Count 16.8 K/mcL (4.3-11.1)
[2019-10-25 04:12] LABS: Platelet Count 94 K/mcL (140-400)
[2019-10-25 04:28] LABS: Neutrophils # 15.8 K/mcL (1.6-8.9); Platelet Estimate Decreased (Normal)
[2019-10-25 04:29] LABS: Calcium 6.5 mg/dL (8.6-10.3); Magnesium 1.5 mg/dL (1.6-2.6); Potassium 4.5 mEq/L (3.5-5.1)
[2019-10-25] MEDS: *HR* Heparin 5,000 UNIT/ML VIAL SQ SCH ×2 (06:30→17:07)
[2019-10-25] MEDS: Cefepime HCl 1,000 MG in Water for inj. (sterile) 20 ML IVP SCH (08:25)
[2019-10-25] MEDS: Cyanocobalamin (B-12) 1,000 MCG TABLET PO SCH (08:26)
[2019-10-25] MEDS: Aspirin Enteric Coated 81 MG Tablet PO SCH (08:26)
[2019-10-25] MEDS: calcitrioL 0.25 MCG CAPSULE PO SCH (08:26)
[2019-10-25] MEDS: Magnesium Oxide 400 MG TABLET PO SCH (08:26)
[2019-10-25] MEDS ORDERED: Calcium Gluconate 2,000 MG in D5% in Water 100 ML IVPB ONE (13:52)
[2019-10-25] MEDS ORDERED: Magnesium Sulfate 2 GM in D5% in Water 100 ML IVPB ONE (13:58)
[2019-10-25] MEDS ORDERED: Calcium Gluconate 1gm/50mL 1 GM/50 ML BAG IVPB ONE ×2 (14:00→14:30)
[2019-10-25] MEDS: Acetaminophen 325 MG TABLET PO PRN (18:33)
[2019-10-26] MEDS: *HR* Heparin 5,000 UNIT/ML VIAL SQ SCH (05:30)
[2019-10-26] MEDS: Cyanocobalamin (B-12) 1,000 MCG TABLET PO SCH (07:33)
[2019-10-26] MEDS: calcitrioL 0.25 MCG CAPSULE PO SCH (07:33)
[2019-10-26] MEDS: Aspirin Enteric Coated 81 MG Tablet PO SCH (07:33)
[2019-10-26] MEDS: Cefepime HCl 1,000 MG in Water for inj. (sterile) 20 ML IVP SCH (07:34)
[2019-10-26] MEDS: Magnesium Oxide 400 MG TABLET PO SCH (07:34)
[2019-10-26 07:45] LABS: Albumin 3.4 g/dL (3.5-5.7); Albumin/Globulin Ratio 1.9 (1.1-2.2); Bilirubin,Direct 0.1 mg/dL (0.0-0.2); Bilirubin,Indirect 0.2 mg/dL (0.0-1.0); Bilirubin,Total 0.3 mg/dL (0.3-1.0); Globulin 1.8 g/dL (2.4-3.5); Total Protein 5.2 g/dL (6.4-8.9)
[2019-10-26 09:05] LABS: Calcium 6.6 mg/dL (8.6-10.3); Potassium 4.5 mEq/L (3.5-5.1)
[2019-10-26 10:24] LABS: Hemoglobin 7.9 g/dL (11.5-15.4); Mean Platelet Volume 10.8 fL (9.4-12.4)
[2019-10-26 10:26] LABS: Hematocrit 25.6 % (35.3-44.9); Immature Platelets 6.1 % (1.1-6.1); Mean Corpuscular HGB Conc 30.9 g/dL (31.6-35.5); Mean Corpuscular Hemoglobin 33.2 pg (28.0-33.3); Mean Corpuscular Volume 107.6 fL (83.0-100.0); Red Blood Count 2.38 M/mcL (3.82-4.97); Red Cell Distribution Width 13.3 % (11.5-14.5)
[2019-10-26 10:45] LABS: Platelet Count 93 K/mcL (140-400)
[2019-10-26 10:50] LABS: Eosinophils # 0.4 K/mcL (0.0-0.6); Lymphocytes # 1.6 K/mcL (0.6-4.6); Neutrophils # 10.3 K/mcL (1.6-8.9)
[2019-10-26 10:54] LABS: Platelet Estimate Slight Decrease (Normal)
[2019-10-26 14:24] VITALS: BP 106/68
== END 2019-10-26 16:54 | disposition home or self-care (01) ==
LOC: 3ANU 08:43 → EMEROOARM 08:43 → SUATTDRO 13:30 → 3ANU 15:10
PROVIDERS: ADMIT Internal Medicine; ATTEND Student in an Organized Health Care Education/Training Program